=== PATIENT | male | born 1980 | race Caucasian/White ===

== ENCOUNTER 2021-11-05 21:09 | Emergency (ER) | payer OTHER ==
[~2021-11-05] VITALS: Ht 182.9 cm; Wt 65.9 kg
[2021-11-05 21:12] VITALS: BP 160/89
[2021-11-05] MEDS ORDERED: CefTRIAXone SODIUM 1 GM/VIAL IM ONE (22:00)
[2021-11-05] MEDS ORDERED: LIDOCAINE/PF 1% 2 ML VIAL IM ONE (22:00)
[2021-11-05] MEDS ORDERED: AZITHROMYCIN 500 MG TABLET PO ONE (22:00)
== END 2021-11-05 22:12 | disposition home or self-care (01) ==
LOC: EMS 21:12
DX: N34.2 Other urethritis (principal)
CPT/HCPCS: 96372; 99283; J0696; J3490; Q9967

== ENCOUNTER 2021-12-28 23:28 | Emergency (ER) | payer OTHER ==
[~2021-12-28] VITALS: Ht 182.9 cm; Wt 65.5 kg
[2021-12-28 23:47] LABS: APPEARANCE,URINE CLEAR (CLEAR); BILIRUBIN,URINE NEGATIVE (NEGATIVE); GLUCOSE, URINE (UA) NEGATIVE (NEGATIVE); KETONES,URINE NEGATIVE (NEGATIVE); LEUKOCYTE ESTERASE ,URINE NEGATIVE (NEGATIVE); NITRATE,URINE NEGATIVE (NEGATIVE); OCCULT BLOOD,URINE NEGATIVE (NEGATIVE); PH,URINE 6.5 (5.0-8.0); PROTEIN,URINE NEGATIVE (NEGATIVE); UROBILINOGEN,URINE 0.2 mg/dL (<=1.0)
[2021-12-28 23:59] LABS: BACTERIA,URINE None Seen /HPF (None Seen); RBC,URINE None Seen /HPF (0-2); WBC,URINE None Seen /HPF (0-5)
[2021-12-29 02:19] VITALS: BP 135/92
[2021-12-29] MEDS ORDERED: CEPH500C3 PO ×2 (02:27→02:46)
== END 2021-12-29 02:53 | disposition home or self-care (01) ==
LOC: EMS 23:28
DX: R30.0 Dysuria (principal)
CPT/HCPCS: 81001; 99283

== ENCOUNTER 2022-01-15 17:44 | Emergency (ER) | payer OTHER ==
[~2022-01-15] VITALS: Ht 182.9 cm; Wt 63.6 kg
[~2022-01-15 17:44] MED LIST: CEPH500C3 PO
[2022-01-15 19:23] VITALS: BP 154/99
== END 2022-01-15 19:26 | disposition home or self-care (01) ==
LOC: EMS 17:45
DX: R30.0 Dysuria (principal); R03.0 Elevated blood-pressure reading, without diagnosis of hypertension
CPT/HCPCS: 81002; 99282; Z7502